=== PATIENT | male | born 1990 | race Caucasian/White ===

== ENCOUNTER 2018-02-26 05:00 | Emergency (ER) | payer SELFPAY ==
[~2018-02-26] VITALS: Ht 160 cm; Wt 72.6 kg
[2018-02-26 05:06] VITALS: BP 147/93
--- NOTE | 2018-02-26 05:09 | NUR ---
TO BED # 5 AMBULATORY, REPORT GIVEN TO JENN
--- NOTE | 2018-02-26 05:10 | NUR ---
28/M CAME IN ED, C/O 03/28 R FOOT PAIN X4 DAYS. R FOOT SOLE ABRASION NOTED. PT REPORTS TAKING PENICILLIN FOR INFECTION. HX DM. NKA. PT DENIES N/V/D; SKIN IS INTACT, PINK/WARM/DRY; AAOX4, PERRL, WITH EVEN AND STEADY GAIT; LUNGS CLEAR BL, BREATHING UNLABORED; HR EVEN AND REGULAR, BL PERIPHERAL PULSES PRESENT; BS ACTIVE X4, NO TENDERNESS TO PALPATION; PT DENIES ANY FEVER, CP, SOB, OR COUGH AT THIS TIME; VSS; PATIENT POSITIONED FOR COMFORT; HOB ELEVATED; BEDRAILS UP X2; BED DOWN.
--- NOTE | 2018-02-26 05:14 | NUR ---
PT TAKEN TO BED 6 INSTEAD
--- NOTE | 2018-02-26 05:22 | NUR ---
Dr. Goldman evaluating patient at bedside.
[2018-02-26 05:37] VITALS: BP 147/93
--- NOTE | 2018-02-26 05:38 | NUR ---
Patient discharged with v/s stable. Written and verbal after care instructions given and explained. Patient alert, oriented and verbalized understanding of instructions. Ambulatory with steady gait. All questions addressed prior to discharge. ID band removed. Patient advised to follow up with PMD. Rx of MOTRIN 800MG, LOTRIMIN TOPICAL CREAM given. Patient educated on indication of medication including possible reaction and side effects. Opportunity to ask questions provided and answered.
== END 2018-02-26 05:38 | disposition home or self-care (01) ==
LOC: MED 05:00
DX: M72.2 Plantar fascial fibromatosis (principal); B35.4 Tinea corporis; R03.0 Elevated blood-pressure reading, without diagnosis of hypertension; E11.9 Type 2 diabetes mellitus without complications
CPT/HCPCS: 99282

== ENCOUNTER 2022-01-18 19:52 | Emergency (ER) | payer SELFPAY ==
[~2022-01-18] VITALS: Ht 167.6 cm; Wt 78.9 kg
[2022-01-18 19:52] VITALS: BP 150/90
--- NOTE | 2022-01-18 19:54 | NUR ---
PT NOHEMY ALS. TAKEN TO BED 4
--- NOTE | 2022-01-18 20:10 | NUR ---
PT FAMILY AT BEDSIDE
--- NOTE | 2022-01-18 20:17 | NUR ---
Dr. Ross examining patient.
[2022-01-18] MEDS ORDERED: BLOOD GLUCOSE MONITORING 1 DEV DEV FS ONE (20:35)
[2022-01-18 20:54] LABS: BASOPHILS # (AUTO) 0.1 K/uL (0.00-0.22); BASOPHILS % (AUTO) 0.5 % (0.0-2.0); EOSINOPHILS # (AUTO) 0.3 K/uL (0-0.4); EOSINOPHILS % (AUTO) 2.7 % (0.0-4.0); HEMATOCRIT 33.7 % (36-52); HEMOGLOBIN 11.2 g/dL (12.0-18.0); LYMPHOCYTES # (AUTO) 1.9 K/uL (2.0-11.5); LYMPHOCYTES % (AUTO) 18.5 % (20.5-51.1); MEAN CORPUSCULAR HEMOGLOBIN 29 pg (27-31); MEAN CORPUSCULAR HGB CONC 33 g/dL (33-37); MEAN CORPUSCULAR VOLUME 86.4 fL (80-94); MONOCYTES # (AUTO) 0.9 K/uL (0.8-1.0); MONOCYTES % (AUTO) 8.5 % (1.7-9.3); NEUTROPHILS # (AUTO) 7.3 K/uL (1.8-7.7); NEUTROPHILS % (AUTO) 69.8 % (42.2-75.2); PLATELET COUNT (AUTO) 228 K/uL (140-450); RED CELL DISTRIBUTION WIDTH 13.5 % (11.6-13.7); WHITE BLOOD COUNT (AUTO) 10.4 K/uL (4.8-10.8)
[2022-01-18 21:13] LABS: ALBUMIN 3.9 g/dL (3.4-5.0); ANION GAP 15.9 (8-16); CARBON DIOXIDE 23.8 mmol/L (21-32); CREATININE 1.7 mg/dL (0.6-1.3); POTASSIUM 3.7 mmol/L (3.5-5.1); TOTAL BILIRUBIN 0.3 mg/dL (0.0-1.0)
[2022-01-18] MEDS ORDERED: LACTATED RINGERS 1,000 ML IV ONE (21:40)
--- NOTE | 2022-01-18 22:13 | NUR ---
PO CHALLENGE TOLERATED. PT RESTING IN BED SIDE RAILS UP X2 RESP EVEN AND UNLABORED
--- NOTE | 2022-01-18 22:50 | NUR ---
BLOOD SUGAR RETAKEN 150 ER NOTIFED. DC PENDING
--- NOTE | 2022-01-18 23:33 | NUR ---
PENDING DC PAPERWORK. FAMILY AT BEDSIDE
[2022-01-18 23:41] VITALS: BP 112/40
--- NOTE | 2022-01-18 23:41 | NUR ---
Patient discharged with v/s stable. Written and verbal after care instructions given and explained. Patient verbalized understanding. Ambulatory with steady gait. All questions addressed prior to discharge. Advised to follow up with PMD.
== END 2022-01-18 23:41 | disposition home or self-care (01) ==
LOC: MED 19:52
DX: E10.649 Type 1 diabetes mellitus with hypoglycemia without coma (principal); N17.9 Acute kidney failure, unspecified; I10 Essential (primary) hypertension
CPT/HCPCS: 36415; 80053; 85025; 99283